=== PATIENT | male | born 1990 | race Caucasian/White ===

== ENCOUNTER 2024-12-12 12:09 | Emergency (ER) | payer SELFPAY ==
[2024-12-12 12:11] VITALS: BP 161/75
[2024-12-12] MEDS: ADACEL 0.5 ML IM (13:33)
--- NOTE | 2024-12-12 13:33 | ED.GENMED ---
History of Present Illness
General
Chief Complaint: Head Injury
Source: patient and family
Exam Limitations: none
Time Seen by Provider: 12/12/24 12:59
Nursing documentation reviewed up to this point in time: agreed with
History of Present Illness
History of Present Illness:
33-year-old male presenting to the emergency department today with concerns of a laceration to his upper forehead that occurred from walking to a steel door to his work truck denies any foreign body contamination or additional concerns. Not on
blood thinners.
Review of Systems
Review of Systems
Allergies reviewed?: Yes
All Other Systems: ROS reviewed and negative except as documented in HPI and ROS
Phy Exam
Physical Exam
Physical Exam:
GENERAL: Alert , in no apparent distress
EYE: pupils equal and reactive
NECK: Supple, no significant adenopathy.
ENT: Left-sided anterior superior forehead 3 cm in total length superficial depth, o/p clr, mmm.
CARDIAC: Regular rate and rhythm .
LUNGS: Clear breath sounds bilaterally, no acute respiratory distress, no wheezes/rales/rhonchi
ABDOMEN: Soft, without focal tenderness, no r/g, no cvat
NEUROLOGICAL: Alert and oriented, no focal neuro deficits
SKIN: Warm and dry, skin intact.
MUSCULOSKELETAL: No edema, well perfused.
PSYCH: Normal and appropriate interaction.
Course
Orders/Labs/Results
Orders:
Orders
12/12/24 13:30
Tetanus/Diphth/Acelpertussis [Adacel] 0.5 ml IM .ONCE ONE
Vital Signs
Initial and Last Documented VS:
Initial Vital Signs
Temp Pulse Resp BP Pulse Ox
98.3 F 79 16 161/75 98
12/12/24 12:11 12/12/24 12:11 12/12/24 12:11 12/12/24 12:11 12/12/24 12:11
Last Documented Vital Signs
Temp Pulse Resp BP Pulse Ox
98.3 F 79 16 161/75 98
12/12/24 12:11 12/12/24 12:11 12/12/24 12:11 12/12/24 12:11 12/12/24 12:11
Procedures
Laceration Closure
Left Superior Forehead:
Status of Wound: clean
Size of Wound in cm: 3
Description of Wound Edges: sharp
Preparation: cleaned with saline
Anesthesia: 1% Lidocaine with epi
Revision/Debridement: routine- no revision and irrigate-direct pressure
Wound exploration: explored to base- no FB
Type of Closure: single layer closure and interrupted sutures
Skin Closure Material: other (Fast-absorbing plain gut, 5-0)
Number of sutures: 5
MDM/Problems Addressed
MDM/Problems Addressed:
33-year-old male presenting to the emergency department today after walking to a steel door causing laceration of his left forehead. This was cleaned thoroughly and closed with 5 dissolving stitches. He was given an updated tetanus shot otherwise
[place] head CT negative. Generally well-appearing here stable for discharge. Return precautions given.
*Pulse Oximetry
SaO2: 98
Oxygen Mode of Delivery: Room air
Patient hypoxic: no (98)
*Critical Care Note
Total Time (30-74mins, 75-104mins- exclusive of procedures): Not Applicable
ED Attending Note
-
Portions of this chart may have been created with voice recognition software.� Occasional wrong word or��sound alike� substitutions may have occurred due to the inherent limitations of voice recognition software.
Discharge Plan
Departure
Patient Disposition: Home (Routine Discharge)
Date of Disposition: 12/12/24
Time of Disposition: 13:39
Patient with high blood pressure during this ER visit?: No
Condition: Good
Covid-19: Not Applicable
Discharge Problem:
Forehead laceration
Instructions: Laceration Repair With Stitches (DC)
Referrals:
NONE,* [Family Provider, Internal Medicine]
Activity Restrictions/Additional Instructions:
You came to the emergency department today with concerns of a forehead laceration. This was cleaned and closed with 5 dissolving stitches. Please keep the area clean covered and allow the stitches to dissolve over the next 1 to 2 weeks. Return
for any worsening, new or concerning symptoms.
Interventions
Interventions:
*Risk Screen - Suicide Last Done: 12/12/24 12:11
*General Assessment Last Done: 12/12/24 12:11
*Neglect/Abuse Screening Last Done: 12/12/24 12:11
*ED- Fall Risk Assessment Last Done: 12/12/24 12:25
*ED COVID-19 Vaccine History Last Done: 12/12/24 12:25
*ED Influenza Vaccine History Last Done: 12/12/24 12:25
ED- Neurological Assessment Last Done: 12/12/24 12:21
ED-Skin Assessment Last Done: 12/12/24 12:21
Discharge Date and Time
Print Language: BULGARIAN
== END 2024-12-12 14:00 | disposition home or self-care (01) ==
LOC: EMR 12:09
PROVIDERS: EMERGENCY PHYSICIAN Emergency Medicine
DX: S01.81XA Laceration without foreign body of other part of head, initial encounter (principal); Y93.01 Activity, walking, marching and hiking; Z23 Encounter for immunization
CPT/HCPCS: 99283; 12013; 90471; 90715

== ENCOUNTER 2024-12-15 09:42 | Emergency (ER) | payer OTHER, SELFPAY ==
[2024-12-15 09:49] VITALS: BP 119/77
--- NOTE | 2024-12-15 11:36 | ED.GENMED ---
History of Present Illness
General
Chief Complaint: Headache
Source: patient
Exam Limitations: none
Time Seen by Provider: 12/15/24 11:17
Nursing documentation reviewed up to this point in time: agreed with
History of Present Illness
History of Present Illness:
Patient is a 33-year-old male who presents the emergency department for evaluation of headache. He sustained a trauma to the head on Sunday when a large steel door swung off the truck and hit him in the forehead. He was seen in the emergency
department at that time where he had stitches placed. He states that over the weekend he felt fine and denies any headache or other neurologic symptoms.
However, upon waking this morning he describes a severe headache on the right side of his head. He had some blurry vision and dizziness earlier this morning which has since resolved.
He denies any fever, neck pain. No nausea or vomiting. No diplopia. No ataxia, dysarthria, or confusion.
Patient denies any other viral symptoms.
He does have a history of migraines many years ago. He states that headache was more severe than this.
Review of Systems
Review of Systems
Allergies reviewed?: Yes
All Other Systems: ROS reviewed and negative except as documented in HPI and ROS
Phy Exam
Physical Exam
Physical Exam:
Vitals: Patient's vital signs are stable. Afebrile
General: Patient is well appearing, no acute distress
Skin: Warm and dry, no rashes or lesions
Head: Normocephalic, well-healing laceration on forehead without purulent drainage or surrounding erythema
Eyes: Sclera nonicteric. Pupils equal round and reactive to light bilaterally. EOMs intact.
Throat: Protecting airway
Neck: Normal ROM, no cervical spine tenderness, no meningismus
Cardiac: Regular rate.
Pulm: No respiratory distress.
.
Abdomen: No abdominal tenderness.
Extremities: No evidence of cyanosis or edema. Strength 5/5 in bilateral upper and lower extremities.
Neuro: AAOx3. CN II-XII grossly intact. Fluid speech. Normal sensation. No focal neurologic deficits.
Psychiatric: Normal affect.
Course
Orders/Labs/Results
Orders:
Orders
12/15/24 09:58
CT Head W/o Iv Contrast Urgent
Comment:
Reason For Exam: head trauma
12/15/24 11:35
0.9% Sodium Chloride 1000 ml [Nss] 1,000 ml IV BOLUS
Ketorolac [Toradol] 15 mg IV NOW STA
12/15/24 11:40
COVID-19 Antigen Urgent
Source: Nasal Swab
Influenza A+B Rapid Molecular Urgent
LESLY Source: Nasal Swab
Specimen Description:
Vital Signs
Initial and Last Documented VS:
Initial Vital Signs
Temp Pulse Resp BP Pulse Ox
98 F 68 19 119/77 99
12/15/24 09:49 12/15/24 09:49 12/15/24 09:49 12/15/24 09:49 12/15/24 09:49
Last Documented Vital Signs
Temp Pulse Resp BP Pulse Ox
98 F 63 18 101/64 99
12/15/24 09:49 12/15/24 14:03 12/15/24 14:03 12/15/24 14:03 12/15/24 14:03
MDM/Problems Addressed
Differential Diagnosis Includes:
Not limited to: Postconcussive syndrome, migraine headache, tension headache, viral syndrome, acute dehydration, etc.
MDM/Problems Addressed:
33-year-old male presenting with headache for 3 days following head trauma. He was in the ED for mild head injury on Sunday and laceration was closed with stitches at that point. He returns today with headache and blurry vision noted earlier
today. No other neurologic symptoms.
Vitals as above. On exam, patient appears well and in no distress. He is neurologically intact without any focal deficits. He has steady gait and fluid speech. Laceration is healing well without any evidence of wound dehiscence or surrounding
cellulitis.
Prior to my evaluation a head CT was performed without acute abnormalities. Symptoms may reflect a postconcussive syndrome however possible migraine, tension headache, viral illness.
Will treat symptoms and reassess
Update: Viral studies negative. On reassessment, patient states headache is essentially completely resolved after IV fluids and Toradol. He remains neurologically intact additional complaints. At this point�feel stable for discharge home with
return precautions.
Chronic conditions affecting care:
N/A
Acute Exacerbation and/or Progression of Chronic Illness:
N/A
*Radiology
Radiology exam reviewed: radiology read reviewed
*Pulse Oximetry
SaO2: 99
Oxygen Mode of Delivery: Room air
Patient hypoxic: no
*EKG
Interpreted by ED Provider?: NA
*[employer] Estimator Interpretation
Rate: [employer] Estimator- N/A
*Critical Care Note
Total Time (30-74mins, 75-104mins- exclusive of procedures): Not Applicable
Data Reviewed
Review of Other/Old Records Reveals: Discharge Summary (Discharge summary from ED on 12/12/2024)
ED Attending Note
-
Portions of this chart may have been created with voice recognition software.� Occasional wrong word or��sound alike� substitutions may have occurred due to the inherent limitations of voice recognition software.
Discharge Plan
Departure
Patient Disposition: Home (Routine Discharge)
Date of Disposition: 12/15/24
Time of Disposition: 13:43
Patient with high blood pressure during this ER visit?: No
Condition: Good
Discharge Problem:
Headache
Instructions: Headache, Adult (DC)
Referrals:
NONE,* [Family Provider, Internal Medicine]
Stand Alone Forms: Return to Work
Activity Restrictions/Additional Instructions:
RETURN TO THE EMERGENCY DEPARTMENT ANY SEVERE HEADACHE OR NECK PAIN, INTRACTABLE VOMITING, VISUAL CHANGES, PERSISTENT DIZZINESS, CHANGES IN MENTAL STATUS, WORSENING IN CURRENT SYMPTOMS, OR ANY OTHER CONCERNS
- As discussed, your head CT showed no acute abnormalities today in the emergency department. Your viral studies were negative. Your headache may be secondary to a concussion from your recent head trauma.
- Please continue to stay well-hydrated and rested. You can take Tylenol and/Motrin as needed for pain.
- Follow-up with primary care for further evaluation/management and to ensure that your symptoms are improving.
Monitor your symptoms closely and return to the emergency department with any acute worsening/new symptoms or any other concerns
Interventions
Interventions:
*Risk Screen - Suicide Last Done: 12/15/24 09:49
*General Assessment Last Done: 12/15/24 09:49
*Neglect/Abuse Screening Last Done: 12/15/24 09:49
*ED- Fall Risk Assessment Last Done: 12/15/24 11:43
*ED COVID-19 Vaccine History Last Done: 12/15/24 11:43
*ED Influenza Vaccine History Last Done: 12/15/24 11:43
*Nursing Disposition Last Done: 12/15/24 14:03
ED- Neurological Assessment Last Done: 12/15/24 11:43
Discharge Date and Time
Discharge Date/Time: 12/15/24 14:04
Print Language: INDONESIAN
[2024-12-15] MEDS: NSS 1000 IV (11:45)
[2024-12-15] MEDS: TORADOL 15 MG IV (11:45)
[2024-12-15 12:10] LABS: COVID-19 Antigen Negative (Negative)
[2024-12-15 14:03] VITALS: BP 101/64
== END 2024-12-15 14:04 | disposition home or self-care (01) ==
LOC: EMR 09:42
PROVIDERS: Physician Assistant; EMERGENCY PHYSICIAN Emergency Medicine
DX: R51.9 Headache, unspecified (principal); W20.8XXA Other cause of strike by thrown, projected or falling object, initial encounter
CPT/HCPCS: 99284; 96374; 96361; 70450; 87502; 87811

== ENCOUNTER 2025-01-14 12:25 | Emergency (ER) | payer SELFPAY ==
[2025-01-14 12:28] VITALS: BP 142/94
--- NOTE | 2025-01-14 13:27 | ED.GENMED ---
History of Present Illness
General
Chief Complaint: Skin Problem
Source: patient
Exam Limitations: none
Time Seen by Provider: 01/14/25 12:47
Nursing documentation reviewed up to this point in time: agreed with
History of Present Illness
History of Present Illness:
34-year-old male presenting to the emergency department today with concerns of a lump on his head that he has noticed over the past few weeks. Somewhat painful recently. Denies any trauma or additional concerns otherwise. No numbness weakness
changes in vision.
Review of Systems
Review of Systems
Allergies reviewed?: Yes
All Other Systems: ROS reviewed and negative except as documented in HPI and ROS
Phy Exam
Physical Exam
Physical Exam:
GENERAL: Alert , in no apparent distress
EYE: pupils equal and reactive
NECK: Supple, no significant adenopathy.
ENT: Small lump to the top of the head skin is normal appearance overlying nodule was less than 1 cm subcutaneous. Additionally patient has a small nevus to the left lateral parietal scalp roughly 3 mm in diameter o/p clr, mmm.
CARDIAC: Regular rate and rhythm .
LUNGS: Clear breath sounds bilaterally, no acute respiratory distress, no wheezes/rales/rhonchi
ABDOMEN: Soft, without focal tenderness, no r/g, no cvat
NEUROLOGICAL: Alert and oriented, no focal neuro deficits
SKIN: Warm and dry, skin intact.
MUSCULOSKELETAL: No edema, well perfused.
PSYCH: Normal and appropriate interaction.
Course
Vital Signs
Initial and Last Documented VS:
Initial Vital Signs
Temp Pulse Resp BP Pulse Ox
98.0 F 73 18 142/94 100
01/14/25 12:28 01/14/25 12:28 01/14/25 12:28 01/14/25 12:28 01/14/25 12:28
Last Documented Vital Signs
Temp Pulse Resp BP Pulse Ox
98.0 F 73 18 142/94 100
01/14/25 12:28 01/14/25 12:28 01/14/25 12:28 01/14/25 12:28 01/14/25 13:30
MDM/Problems Addressed
MDM/Problems Addressed:
34-year-old male presenting to the emergency department with concerns of skin changes to his scalp over the past few weeks. Patient appears to have a nevus that appears to be benign in nature considering no significant asymmetry normal borders like
color, relatively small diameter. He was advised to closely follow-up as an outpatient to have this monitored and potentially biopsied if things are changing. Additionally is a small subcutaneous nodule to the top of the head. No redness or
warmth or signs of infection. Advised for close follow-up for this as well.
*Pulse Oximetry
SaO2: 100
Oxygen Mode of Delivery: Room air
Patient hypoxic: no (100)
*Critical Care Note
Total Time (30-74mins, 75-104mins- exclusive of procedures): Not Applicable
ED Attending Note
-
Portions of this chart may have been created with voice recognition software.� Occasional wrong word or��sound alike� substitutions may have occurred due to the inherent limitations of voice recognition software.
Discharge Plan
Departure
Patient Disposition: Home (Routine Discharge)
Date of Disposition: 01/14/25
Time of Disposition: 13:27
Patient with high blood pressure during this ER visit?: No
Condition: Good
Covid-19: Not Applicable
Discharge Problem:
Melanocytic nevus of scalp, Subcutaneous cyst
Instructions: Skin Rash (DC)
Referrals:
NONE,* [Family Provider, Internal Medicine]
Myriam Nj MD [Consulting Staff, Dermatology] - Follow up in 10 days
Makenzie Cline MD [Consulting Staff, Dermatology] - Follow up in 10 days
Activity Restrictions/Additional Instructions:
You came to the emergency department today with concerns of skin lesions. Here your reassuring assessment. Please follow closely with dermatology. Return for any worsening, new or concerning symptoms.
Interventions
Interventions:
[facility] Risk Assessment Tool Last Done: 01/14/25 12:47
Discharge Date and Time
Print Language: YI
== END 2025-01-14 14:01 | disposition home or self-care (01) ==
LOC: EMR 12:25
PROVIDERS: EMERGENCY PHYSICIAN Student in an Organized Health Care Education/Training Program
DX: D22.4 Melanocytic nevi of scalp and neck (principal); B43.2 Subcutaneous pheomycotic abscess and cyst
CPT/HCPCS: 99282